=== PATIENT | female | born 1995 | race Caucasian/White ===

== ENCOUNTER 2021-07-19 08:50 | Emergency (ER) | payer MEDICAID ==
[~2021-07-19] VITALS: Ht 165.1 cm; Wt 91.0 kg
[2021-07-19] MEDS ORDERED: IBUPROFEN 600MG TABLET PO ONE (09:15)
[2021-07-19] MEDS ORDERED: ONDA4TAB5 MT (10:21)
[2021-07-19] MEDS ORDERED: IBUP-2029 MT (10:21)
[2021-07-19 11:04] VITALS: BP 154/85
== END 2021-07-19 11:05 | disposition home or self-care (01) ==
LOC: ER 08:50
DX: U07.1 COVID-19 (principal); B34.9 Viral infection, unspecified
CPT/HCPCS: 87804; 99283; C9803; U0003; U0005